=== PATIENT | male | born 1965 | race Caucasian/White ===

== ENCOUNTER → 2016-11-07 | Outpatient (CLI) | payer BC ==
--- NOTE | 2016-11-07 10:57 | MRI ---
Study: MRI of the Right Shoulder. Indication: SHOULDER PAIN Technique: Multiplanar, multi sequence MRI of the right shoulder was obtained without intravenous contrast. Comparison: None Findings: Moderate to severe AC joint osteoarthritis with significant reactive marrow edema distal clavicular head and acromion as well as pericapsular edema. Type 1 acromion with mild inferior downsloping of the anterior margin. Trace subacromial/subdeltoid bursal fluid. Supraspinatus and infraspinatus tendinosis noted with irregular low-grade articular side tearing throughout the supraspinatus and anterior infraspinatus at the junction of the critical zone and insertional fibers. The tearing involves up to 25% expected tendon thickness. No full-thickness tear defect. Additional mild interstitial fissuring of the anterior leading edge insertion of the supraspinatus tendon noted. Subscapularis tendinosis. Teres minor tendon intact. Rotator cuff musculature normal without atrophy, fatty infiltration or intramuscular edema. Intracapsular long head biceps tendinosis without tear. Circumferential labral truncation/degeneration. Minimal glenohumeral joint osteoarthritis. Mild thickening inferior glenohumeral ligament which can be seen with adhesive capsulitis. Impression: Supraspinatus and infraspinatus tendinosis with irregular low-grade articular side tearing throughout both tendons as above. No full-thickness tear or tendon retraction. Subscapularis tendinosis. Intracapsular long head biceps tendinosis. Circumferential labral truncation/ degeneration. Minimal glenohumeral joint osteoarthritis. Adhesive capsulitis. 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 Electronically signed by: Raimundo Wiley MD 11/07/2016 10:56
== END ==
LOC: MRI 08:12
PROVIDERS: ATTEND Family Medicine
DX: M75.121 Complete rotator cuff tear or rupture of right shoulder, not specified as traumatic (principal); M19.011 Primary osteoarthritis, right shoulder; M75.01 Adhesive capsulitis of right shoulder

== ENCOUNTER 2020-07-30 22:45 | Emergency (ER) | payer BC ==
[2020-07-30] MEDS ORDERED: TETRACAINE HCL 0.5% OPHTH SOL 1 DROP LEFT_EYE ONE (22:56)
[2020-07-30] MEDS ORDERED: FLUORESCEIN SODIUM OPHTH STRIP LEFT_EYE ONE (22:56)
--- NOTE | 2020-07-30 23:00 | ED.PDOC ---
History of Present Illness - General Chief Complaint: Eye Problems Stated Complaint: eye pain Time Seen by Provider: 07/30/20 22:53 Source: patient, RN notes reviewed, Vital Signs reviewed - History of Present Illness Initial Comments: This is a 54-year-old male presenting to the emergency department with foreign body sensation in the left eye. Patient states that this began after he was working out in the wind and dust and thinks he got some dust in his eye this morning. Symptoms been intermittent throughout the day today. He denies any vision changes. Patient is unsure when his last tetanus shot was. He has a right eye prosthesis. Home Medications: Ambulatory Orders Acetaminophen W/ Codeine [Tylenol W/ CODEINE #3] 1 - 2 tab PO Q6H PRN #20 tab 07/30/20 Polymyxin B-Trimethoprim [Polytrim] 1 drop LEFT_EYE Q4H #1 bottle 07/30/20 Review of Systems - Review of Systems Constitutional: Denies: chills, fever EENTM: States: eye pain, blurred vision, tearing. Denies: nose pain, throat swelling, mouth swelling Respiratory: Denies: cough, short of breath Family Medical History - Family History Father Family History: Unknown Physical Exam - Physical Exam General Appearance: Alert, Comfortable, No apparent distress Eye Exam: bilateral other - There is a right eye prosthesis. Left eye conjunctive is injected. There is a corneal abrasion at approximately 10 to 11 o'clock position on the cornea. There is a small just foreign body that was removed with a cotton swab on the lower eyelid. There were no other foreign bodies noted after the lids were everted and swept. There is a small stye of the upper lid Cardiovascular/Respiratory: regular rate, rhythm, normal peripheral pulses, no respiratory distress Neurologic: alert, normal mood/affect, oriented x 3 Skin Exam: normal color, warm/dry Departure - Departure Clinical Impression: Corneal abrasion Qualifiers: Encounter type: initial encounter Laterality: left Qualified Code(s): S05.02XA - Injury of conjunctiva and corneal abrasion without foreign body, left eye, initial encounter Disposition: Discharge to Home or Self Care Condition: Good Health Concerns: Follow-up with an staffing program manager or speeder tender in 2 to 3 days for recheck and to assure corneal abrasion is healing appropriately. Departure Forms: ED Discharge - Pt. Copy, Patient Portal Self Enrollment Instructions: DI for Eye Pain, Corneal Abrasion (DC) Diet: resume usual diet Activity: increase activity as tolerated Referrals: Robbin Lagunas MD [Primary Care Provider] - 1-5 Days Prescriptions: Polymyxin B-Trimethoprim [Polytrim] 1 drop LEFT_EYE Q4H #1 bottle Acetaminophen W/ Codeine [Tylenol W/ CODEINE #3] 1 - 2 tab PO Q6H PRN #20 tab PRN Reason: Moderate To Severe Pain Home Medications: Ambulatory Orders Acetaminophen W/ Codeine [Tylenol W/ CODEINE #3] 1 - 2 tab PO Q6H PRN #20 tab 07/30/20 Polymyxin B-Trimethoprim [Polytrim] 1 drop LEFT_EYE Q4H #1 bottle 07/30/20
[2020-07-30] MEDS ORDERED: HYDROCOD/APAP 7.5/325 (ER DISP) #3 TAB PO ONE (23:40)
[2020-07-31 00:07] VITALS: BP 156/93; TEMP 97.5; O2SAT 98
== END 2020-07-31 00:05 | disposition home or self-care (01) ==
LOC: ER 22:45
DX: S05.02XA Injury of conjunctiva and corneal abrasion without foreign body, left eye, initial encounter (principal); Z97.0 Presence of artificial eye; X58.XXXA Exposure to other specified factors, initial encounter; Y92.9 Unspecified place or not applicable